=== PATIENT | male | born 1975 | race Hispanic/Latino ===

== ENCOUNTER 2017-09-15 08:16 | Emergency (ER) | payer MEDICAID ==
[2017-09-15 08:23] VITALS: BP 138/86; PULSE 62; RESP 18; TEMP 97.7; O2SAT 99
--- NOTE | 2017-09-15 09:36 | C.PDOC ---
History Of Present Illness 42 y/o male with a PMHx of herniated disc presents to the emergency department complaining of left lower back pain since yesterday. States he laid down the other day to work on his car, and noticed pain to left lower back upon standing up. No numbness, tingling, saddle anesthesia, bladder or bowel dysfunction. Took Mobic at home with no relief. Time Seen by Provider: 09/15/17 08:48 Chief Complaint (Nursing): Back Pain History Per: Patient History/Exam Limitations: no limitations Onset/Duration Of Symptoms: Days (x2) Current Symptoms Are (Timing): Still Present Previous Symptoms: Back Pain Associated Symptoms: None Past Medical History Reviewed: Historical Data, Nursing Documentation, Vital Signs Vital Signs: Last Vital Signs Temp 97.7 F 09/15/17 08:18 Pulse 62 09/15/17 08:18 Resp 18 09/15/17 08:18 BP 138/86 09/15/17 08:18 Pulse Ox 99 09/15/17 19:27 - Medical History PMH: Back Problems, Kidney Stones, Sleep Apnea (uses cpap) Surgical History: Tonsillectomy (12 years old) Family History: States: Diabetes, Hypertension - Social History Hx Tobacco Use: No Hx Alcohol Use: No Hx Substance Use: No - Immunization History Hx Tetanus Toxoid Vaccination: No Hx Influenza Vaccination: No Hx Pneumococcal Vaccination: No Review Of Systems Gastrointestinal: Negative for: Abdominal Pain Genitourinary: Negative for: Dysuria, Frequency, Incontinence Musculoskeletal: Positive for: Back Pain (left lower) Neurological: Negative for: Weakness, Numbness (and tingling) Physical Exam - Physical Exam Appears: No Acute Distress, Other (Obese male) Skin: No Rash Eye(s): bilateral: PERRL, EOMI Oral Mucosa: Moist Neck: No Midline Cervical Tenderness, Supple Chest: No Tenderness Respiratory: No Decreased Breath Sounds Back: No Vertebral Tenderness, Paraspinal Tenderness (Mild left paralumbar tenderness), No Straight Leg Raising Extremity: Normal ROM, No Tenderness, No Swelling Extremity: Bilateral: Atraumatic, Normal Color And Temperature Neurological/Psych: Oriented x3, Normal Speech, Normal Cognition, Normal Motor, Normal Sensation Gait: Steady ED Course And Treatment O2 Sat by Pulse Oximetry: 99 (RA) Pulse Ox Interpretation: Normal Medical Decision Making Medical Decision Making: Time: 9:14 Initial Plan: Flexeril 10 mg PO Toradol 30 mg IM Pt with hx herniated disk with non radiating left low back pain s/p lifting something. Will d/c with nsaids and flexeril. Disposition Counseled Patient/Family Regarding: Diagnosis, Need For Followup, Rx Given - Disposition Referrals: Dae Mcdowell MD [Non-Staff] - Disposition: HOME/ ROUTINE Disposition Time: 09:37 Condition: GOOD Additional Instructions: Take medications as prescribed; if working, take muscle relaxant at bedtime only. makes you sleepy. Continue with Mobic. Follow up with your doctor in a few days. 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 - Scribe Statement The provider has reviewed the documentation as recorded by the Scribe (Amelia Lamb) All medical record entries made by the Scribe were at my direction and personally dictated by me. I have reviewed the chart and agree that the record accurately reflects my personal performance of the history, physical exam, medical decision making, and the department course for this patient. I have also personally directed, reviewed, and agree with the discharge instructions and disposition.
== END 2017-09-15 09:59 | disposition home or self-care (01) ==
LOC: C.ER 08:16
DX: S39.012A Strain of muscle, fascia and tendon of lower back, initial encounter (principal); X58.XXXA Exposure to other specified factors, initial encounter
CPT/HCPCS: 96372; 99284; J1885